=== PATIENT | male | born 1960 | race Caucasian/White ===

== ENCOUNTER → 2020-01-05 | Outpatient (CLI) | payer OTHER | LOC: SJCVC 13:09 | PROVIDERS: ATTEND Internal Medicine | DX: R94.31 Abnormal electrocardiogram [ECG] [EKG] (principal); R07.2 Precordial pain; I44.7 Left bundle-branch block, unspecified; E78.5 Hyperlipidemia, unspecified; M89.49 Other hypertrophic osteoarthropathy, multiple sites; J44.9 Chronic obstructive pulmonary disease, unspecified; F17.200 Nicotine dependence, unspecified, uncomplicated ==